=== PATIENT | male | born 1985 | race Caucasian/White ===

== ENCOUNTER 2017-11-01 15:17 | Emergency (ER) | payer MEDICAID, OTHER ==
[2017-11-01 15:39] VITALS: BP 110/71; PULSE 88; RESP 16; TEMP 98.3; O2SAT 97
--- NOTE | 2017-11-01 16:54 | CT ---
Date of service: 11/01/2017 PROCEDURE: CT MAXILLOFACIAL BONES WITHOUT CONTRAST HISTORY: R sided facial pain COMPARISON: None available. TECHNIQUE: Contiguous axial CT images of the maxillofacial bones were obtained. Coronal and sagittal reformats were generated. Radiation dose: Total exam DLP = 899.52 mGy-cm. This CT exam was performed using one or more of the following dose reduction techniques: Automated exposure control, adjustment of the mA and/or kV according to patient size, and/or use of iterative reconstruction technique. FINDINGS: NASAL BONES: Possible nondisplaced nasal tip fracture. ORBITS: Unremarkable. PARANASAL SINUSES/ MASTOIDS: Mild chronic bilateral maxillary sinusitis. MAXILLA: Unremarkable. MANDIBLE/ TEMPOROMANDIBULAR JOINTS: Unremarkable. SKULL BASE: Unremarkable. TEMPORAL BONES: Middle ears and mastoid grossly unremarkable. OTHER FINDINGS: None. IMPRESSION: Possible nondisplaced nasal tip fracture. Mild chronic bilateral maxillary sinusitis. No additional abnormality.
--- NOTE | 2017-11-01 17:18 | ED PDOC ---
HPI: Dental Pain/Injury Time Seen by Provider: 11/01/17 15:39 Chief Complaint (Nursing): Dental Pain Chief Complaint (Provider): Dental Pain History Per: Patient History/Exam Limitations: no limitations Onset/Duration Of Symptoms: Days (x1) Additional Complaint(s): Patient is a 32 y/o male who presents to the ED complaining of facial pain, onset x1 day ago. Patient reports that he developed atraumatic right facial pain yesterday. He states that the pain gets worse when he bends his neck forward. Patient saw his dentist yesterday who did an x ray of his jaw and prescribed patient Motrin and Amoxicillin; he was told it is not a dental issue and was advised to come to the ED if pain worsens. Patient had fillings in right upper jaw last month. He denies nasal congestion, fever, trauma, sore throat, rash, vision changes, weakness, numbness. Past Medical History Reviewed: Historical Data, Nursing Documentation, Vital Signs Vital Signs: Last Vital Signs Temp 98.3 F 11/01/17 15:34 Pulse 88 11/01/17 15:34 Resp 16 11/01/17 15:34 BP 110/71 11/01/17 15:34 Pulse Ox 97 11/01/17 15:34 - Medical History PMH: No Chronic Diseases - Family History Family History: States: Unknown Family Hx - Immunization History Hx Influenza Vaccination: No - Home Medications Home Medications: Ambulatory Orders Medication Instructions Recorded Albuterol HFA [Ventolin HFA 90 2 puff IH [id number] #1 inhaler 05/25/17 mcg/actuation (8 g)] Benzonatate [Tessalon Perles] 100 mg PO TID #20 sgl 05/25/17 Cetirizine HCl [Zyrtec] 10 mg PO DAILY #20 capsule 05/25/17 Ibuprofen [Motrin] 600 mg PO Q6H #20 tab 05/25/17 predniSONE [Prednisone] 40 mg PO DAILY #10 tab 05/25/17 Amoxicillin/Clavulanate [Augmentin 1 tab PO BID #20 tab 11/01/17 875 MG-125 MG] Fluticasone Propionate [Flonase] 2 spr NS DAILY PRN #1 bottle 11/01/17 Pseudoephedrine HCl [Sudafed] 1 - 2 tab PO Q8 PRN #15 tablet 11/01/17 - Allergies Allergies/Adverse Reactions: Allergies Allergy/AdvReac Type Severity Reaction Status Date / Time No Known Allergies Allergy Verified 11/01/17 15:34 Review of Systems ROS Statement: Except As Marked, All Systems Reviewed And Found Negative Constitutional: Negative for: Fever Eyes: Negative for: Vision Change ENT: Negative for: Nose Congestion, Throat Pain Skin: Negative for: Rash Neurological: Negative for: Weakness, Numbness Physical Exam - Reviewed Nursing Documentation Reviewed: Yes Vital Signs Reviewed: Yes - Physical Exam Appears: Positive for: No Acute Distress Eye Exam: Positive for: Normal appearance, EOMI (without pain), PERRL. Negative for: Periorbital swelling, Periorbital tenderness ENT: Positive for: Normal ENT Inspection. Negative for: Pharyngeal Erythema, Other (tonsillar erythema) Neck: Positive for: Normal, Painless ROM, Supple Neurologic/Psych: Positive for: Alert, Oriented (x3). Negative for: Motor/ Sensory Deficits - ECG O2 Sat by Pulse Oximetry: 97 (RA) Pulse Ox Interpretation: Normal Medical Decision Making Medical Decision Making: Time: 15:48 Impression: facial pain Initial plan: --CT orbit/maxillofacial w/o contrast: Possible nondisplaced nasal tip fracture. Mild chronic bilateral maxillary sinusitis. No additional abnormality. Pt. informed of results and agrees with plan and care. Advised to stop taking Amoxicillin and take medications prescribed today instead. Advised to also f/u with Dr. Worthy, ENT, for further evaluation. Denies nasal pain, facial trauma, epistaxis. No septal hematoma b/l. Scribe Attestation: Documented by Rosendo De León, acting as a scribe for Reece Fischer PA-C. Provider Scribe Attestation: All medical record entries made by the scribe were at my direction and personally dictated by me. I have reviewed the chart and agree that the record accurately reflects my personal performance of the history, physical exam, medical decision making, and the department course for this patient. I have also personally directed, reviewed, and agree with the discharge instructions and disposition. Disposition - Clinical Impression Clinical Impression: Acute sinusitis - Patient ED Disposition Is Patient to be Admitted: No - Disposition Referrals: Prakash Worthy MD [Staff Provider] - Disposition: Routine/Home Disposition Time: 17:00 Condition: STABLE Additional Instructions: TAYLOR YO, thank you for letting us take care of you today. Your provider was Isis Kohli MD and you were treated for RT SIDE FACE SWOLLEN. The emergency medical care you received today was directed at your acute symptoms. If you were prescribed any medication, please fill it and take as directed. It may take several days for your symptoms to resolve. Return to the Emergency Department if your symptoms worsen, do not improve, or if you have any other problems. Please contact your doctor or call one of the physicians/clinics you have been referred to that are listed on the Patient Visit Information form that is included in your discharge packet. Bring any paperwork you were given at discharge with you along with any medications you are taking to your follow up visit. Our treatment cannot replace ongoing medical care by a primary care provider outside of the emergency department. Thank you for allowing the [facility] team to be part of your care today. If you had an X-Ray or CT scan: A Radiologist will review the ED reading if any change in treatment is needed we will contact you. If you had a blood, urine, or wound culture: It will take several days for the results, if any change in treatment is needed we will contact you. If you had an STI test: It will take 48 hours for the results. Please call after 1 week if you have not heard back. Prescriptions: Amoxicillin/Clavulanate [Augmentin 875 MG-125 MG] 1 tab PO BID #20 tab Fluticasone Propionate [Flonase] 2 spr NS DAILY PRN #1 bottle PRN Reason: Allergy Symptoms Pseudoephedrine HCl [Sudafed] 1 - 2 tab PO Q8 PRN #15 tablet PRN Reason: congestion Instructions: Sinusitis, Adult (DC) Forms: [facility] (Croatian) Print Language: IRISH
== END 2017-11-01 17:30 | disposition home or self-care (01) ==
LOC: H.ER 15:17
DX: J01.90 Acute sinusitis, unspecified (principal)